=== PATIENT | female | born 1960 | race Caucasian/White ===

== ENCOUNTER → 2022-08-12 07:15 | Outpatient (CLI) | payer OTHER, SELFPAY | PROVIDERS: Visit Provider Physician Assistant Medical | DX: R30.0 Dysuria (principal) | CPT/HCPCS: 87086 ==

== ENCOUNTER → 2022-10-27 11:19 | Outpatient (CLI) | payer OTHER, SELFPAY ==
[2022-10-27 12:52] LABS: Alanine Aminotransferase 107 IU/L (<35); Albumin 4.9 g/dL (3.5-5.0); Albumin Globulin Ratio 1.6 (1.0-2.8); Alkaline Phosphatase 68 U/L (38-126); Aspartate Aminotransferase 58 IU/L (14-36); BUN Creatinine Ratio 22.2 (6-22); Bilirubin Total 0.5 mg/dL (0.2-1.3); Blood Urea Nitrogen 16 mg/dL (7-17); Calcium 9.8 mg/dL (8.4-10.2); Carbon Dioxide 24 mmol/L (22-32); Chloride 99 mmol/L (98-107); Cholesterol 294 mg/dL (140-199); Estimated Glomerular Filt Rate > 60 mL/min (>60); Glucose 102 mg/dL (80-110); HDL Cholesterol 43 mg/dL (40-60); HEMOLYSIS < 15 (0-50); LDL Cholesterol Calculated 174 mg/dL (<100); Potassium 4.1 mmol/L (3.4-5.1); Sodium 136 mmol/L (137-145); Total Protein 7.9 g/dL (6.3-8.2); Triglycerides 385 mg/dL (35-150)
[2022-10-27 13:00] LABS: Hemoglobin A1C% w Est Avg Glu 6.3 % (4.0-6.0)
[2022-10-27 16:40] LABS: Vitamin D 25 Hydroxy (D3) 58.6 ng/mL (30.0-100.0)
== END ==
PROVIDERS: PCP Family Medicine; Referring Provider Family Medicine; Visit Provider Family Medicine
DX: Z00.00 Encounter for general adult medical examination without abnormal findings (principal); E55.9 Vitamin D deficiency, unspecified; M25.511 Pain in right shoulder; Z13.1 Encounter for screening for diabetes mellitus; Z13.220 Encounter for screening for lipoid disorders
CPT/HCPCS: 36415; 80053; 80061; 82306; 83036

== ENCOUNTER → 2023-01-15 08:34 | Outpatient (CLI) | payer OTHER, SELFPAY ==
--- NOTE | 2023-01-15 08:35 | DI.MG.S_ITS ---
BILATERAL DIGITAL SCREENING MAMMOGRAM 3D/2D WITH CAD: 01/15/2023 CLINICAL: Routine screening. Baseline exam. Family history of breast cancer. No prior exams were available for comparison. Both breasts are heterogeneously dense, which may obscure small masses (category c / 51-75% glandular tissue). Current study was also evaluated with a Computer Aided Detection (CAD) system. There are benign calcifications in both breasts. No significant masses, calcifications, or other findings are seen in either breast. IMPRESSION: BENIGN There is no mammographic evidence of malignancy. A 1 year screening mammogram is recommended. Based on the Tyrer Cuzick model (a risk assessment model) the patient's lifetime risk is 10.1% and her 10 year risk is 4.3%. According to the ACR, ACS, and NCCN guidelines, an annual breast MRI exam along with mammogram is recommended if the patient's lifetime risk is 20% or greater. This exam was interpreted at Station ID: [id number]. NOTE: For mammograms, a report in lay terms will be sent to the patient. Approximately 15% of breast malignancies will not be visualized mammographically. In the management of a palpable breast mass, a negative mammogram must not discourage biopsy of a clinically suspicious lesion. Electronically Signed By: Murali marvin/alok:01/15/2023 13:56:40 letter sent: Normal Exam ACR BI-RADS Category 2: Benign Finding(s) 3342F
== END ==
PROVIDERS: PCP Family Medicine; Referring Provider Family Medicine; Visit Provider Family Medicine
DX: Z12.31 Encounter for screening mammogram for malignant neoplasm of breast (principal); Z80.3 Family history of malignant neoplasm of breast
CPT/HCPCS: 77063; 77067

== ENCOUNTER → 2023-03-13 08:08 | Outpatient (CLI) | payer OTHER, SELFPAY ==
[2023-03-13 08:58] LABS: Add Manual Diff / Slide Review NO; Basophils Absolute Auto 100 /uL (0-100); Basophils Percent Auto 0.8 % (0-2); Eosinophils Absolute Auto 200 /uL (0-450); Eosinophils Percent Auto 3.9 % (2-4); Hematocrit 38.8 % (36-46); Hemoglobin 13.5 g/dL (12.0-16.0); Lymphocytes Absolute Auto 2400 /uL (1100-4500); Lymphocytes Percent Auto 38.2 % (25-40); Mean Corpuscular HGB Conc 34.7 % (30-36); Mean Corpuscular Hemoglobin 30.8 PG (26-34); Mean Corpuscular Volume 88.8 fL (80-100); Monocytes Absolute Auto 400 /uL (0-900); Monocytes Percent Auto 6.3 % (3-14); Neutrophils Absolute Auto 3100 /uL (1500-7000); Neutrophils Percent Auto 50.8 % (50-75); Platelet Count 322 X10^3/uL (150-400); Red Blood Cell Count 4.37 X10^6/uL (4.0-5.2); Red Cell Distribution Width 13.5 % (11.6-14.8); White Blood Cell Count 6.2 X10^3/uL (4.5-11.0)
[2023-03-13 09:37] LABS: Alanine Aminotransferase 107 IU/L (<35); Albumin 4.6 g/dL (3.5-5.0); Albumin Globulin Ratio 1.6 (1.0-2.8); Alkaline Phosphatase 65 U/L (38-126); Aspartate Aminotransferase 62 IU/L (14-36); Bilirubin Total 0.7 mg/dL (0.2-1.3); Bilirubin Unconjugated 0.6 mg/dL (0.0-1.1); Globulin 2.8 g/dL (1.7-4.1); HEMOLYSIS < 15 (0-50); Total Protein 7.4 g/dL (6.3-8.2)
[2023-03-13 10:07] LABS: Hepatitis B Surface Antigen NEGATIVE s/c (NEGATIVE)
[2023-03-13 10:19] LABS: Hep C Virus Ab w/Reflex Quant NEGATIVE s/c (NEGATIVE)
[2023-03-14 05:25] LABS: Labcorp Hemoglobin (Hb) A1c 5.8 % (4.8-5.6)
== END ==
PROVIDERS: PCP Family Medicine; Referring Provider Family Medicine; Visit Provider Family Medicine
DX: E78.2 Mixed hyperlipidemia (principal); R73.01 Impaired fasting glucose; R79.89 Other specified abnormal findings of blood chemistry; Z78.9 Other specified health status
CPT/HCPCS: 36415; 80076; 83036; 85025; 86803; 87340

== ENCOUNTER → 2023-04-06 07:48 | Outpatient (CLI) | payer OTHER, SELFPAY ==
--- NOTE | 2023-04-06 07:49 | DI.US.S_ITS ---
PROCEDURE: US ABDOMEN LIMITED INDICATIONS: ABNORMAL LIVER ENZYMES TECHNIQUE: Real-time focused scanning was performed of the abdomen, with image documentation. COMPARISON: None. FINDINGS: Liver length of 18.0 cm. The liver is echogenic. Probable focal fatty sparing adjacent to the gallbladder fossa. No gallstones, gallbladder wall thickening, or sonographic Quintanilla sign. No biliary ductal dilation. Extrahepatic bile duct measures 4 mm. Visualized pancreas is unremarkable sonographically. IMPRESSION: 1. The liver is echogenic, a nonspecific finding commonly seen in the setting of steatosis. 2. No biliary ductal dilation demonstrated. Dictated by: Jamie Key M.D. on 04/06/2023 at 9:08 Approved by: Jamie Key M.D. on 04/06/2023 at 9:34
== END ==
PROVIDERS: PCP Family Medicine; Referring Provider Family Medicine; Visit Provider Family Medicine
DX: R79.89 Other specified abnormal findings of blood chemistry (principal)
CPT/HCPCS: 76705

== ENCOUNTER → 2023-10-07 08:13 | Outpatient (CLI) | payer OTHER, SELFPAY ==
[2023-10-07 10:03] LABS: Hemoglobin A1C% w Est Avg Glu 5.9 % (4.0-6.0)
[2023-10-07 10:22] LABS: Alanine Aminotransferase 69 IU/L (<35); Albumin 4.7 g/dL (3.5-5.0); Albumin Globulin Ratio 1.7 (1.0-2.8); Alkaline Phosphatase 57 U/L (38-126); Aspartate Aminotransferase 45 IU/L (14-36); BUN Creatinine Ratio 17.9 (6-22); Bilirubin Total 0.8 mg/dL (0.2-1.3); Blood Urea Nitrogen 15 mg/dL (7-17); Calcium 10.5 mg/dL (8.4-10.2); Carbon Dioxide 25 mmol/L (22-32); Chloride 99 mmol/L (98-107); Cholesterol 259 mg/dL (140-199); Estimated Glomerular Filt Rate > 60 mL/min (>60); Globulin 2.8 g/dL (1.7-4.1); Glucose 108 mg/dL (80-110); HDL Cholesterol 43 mg/dL (40-60); HEMOLYSIS < 15 (0-50); LDL Cholesterol Calculated 143 mg/dL (<100); Potassium 4.8 mmol/L (3.4-5.1); Sodium 136 mmol/L (137-145); Total Protein 7.5 g/dL (6.3-8.2); Triglycerides 367 mg/dL (35-150)
== END ==
LOC: LAB 08:14
PROVIDERS: PCP Family Medicine; Referring Provider Family Medicine; Visit Provider Family Medicine
DX: E78.2 Mixed hyperlipidemia (principal); R73.01 Impaired fasting glucose; R79.89 Other specified abnormal findings of blood chemistry
CPT/HCPCS: 36415; 80053; 80061; 83036

== ENCOUNTER → 2024-02-25 08:38 | Outpatient (CLI) | payer OTHER, SELFPAY | PROVIDERS: PCP Family Medicine; Visit Provider Nurse Practitioner Family | DX: R35.0 Frequency of micturition (principal) | CPT/HCPCS: 87077; 87086 ==

== ENCOUNTER → 2024-04-21 08:14 | Outpatient (CLI) | payer OTHER, SELFPAY ==
[2024-04-21 09:18] LABS: Hemoglobin A1C% w Est Avg Glu 6.4 % (4.0-6.0)
[2024-04-21 09:20] LABS: Alanine Aminotransferase 104 IU/L (<35); Albumin 4.8 g/dL (3.5-5.0); Alkaline Phosphatase 75 U/L (38-126); Aspartate Aminotransferase 62 IU/L (14-36); BUN Creatinine Ratio 19.4 (6-22); Bilirubin Total 0.6 mg/dL (0.2-1.3); Blood Urea Nitrogen 14 mg/dL (7-17); Calcium 9.8 mg/dL (8.4-10.2); Carbon Dioxide 24 mmol/L (22-32); Chloride 103 mmol/L (98-107); Cholesterol 181 mg/dL (140-199); Estimated Glomerular Filt Rate > 60 mL/min (>60); Globulin 2.4 g/dL (1.7-4.1); Glucose 124 mg/dL (80-110); HDL Cholesterol 44 mg/dL (40-60); HEMOLYSIS < 15 (0-50); LDL Cholesterol Calculated 77 mg/dL (<100); Potassium 4.9 mmol/L (3.4-5.1); Sodium 137 mmol/L (137-145); Total Protein 7.2 g/dL (6.3-8.2); Triglycerides 300 mg/dL (35-150)
[2024-04-21 09:32] LABS: Vitamin D 25 Hydroxy (D3) 63.9 ng/mL (30.0-100.0)
[2024-04-23 09:40] LABS: Ionized Calcium 5.2 mg/dL (4.5-5.6)
[2024-04-23 20:08] LABS: Free Kappa Lt Chains, Serum 16.5 mg/L (3.3-19.4); Free Lambda Lt Chains,Serum 10.6 mg/L (5.7-26.3)
[2024-04-26 07:41] LABS: Parathyroid Hormone Int 37 pg/mL (15-65)
[2024-04-26 14:36] LABS: Albumin 4.3 g/dL (2.9-4.4); Alpha-1-Globulin 0.2 g/dL (0.0-0.4); Alpha-2-Globulin 0.7 g/dL (0.4-1.0); Gamma Globulin 0.9 g/dL (0.4-1.8); Globulin Total 2.8 g/dL (2.2-3.9); Protein, Total 7.1 g/dL (6.0-8.5)
== END ==
PROVIDERS: PCP Family Medicine; Referring Provider Family Medicine; Visit Provider Family Medicine
DX: Z00.00 Encounter for general adult medical examination without abnormal findings (principal); K76.0 Fatty (change of) liver, not elsewhere classified; Z78.9 Other specified health status; R79.89 Other specified abnormal findings of blood chemistry; E78.2 Mixed hyperlipidemia; R73.01 Impaired fasting glucose; E83.52 Hypercalcemia
CPT/HCPCS: 36415; 80053; 80061; 82306; 82330; 83036; 83883; 83970; 84155; 84165

== ENCOUNTER → 2024-05-02 08:43 | Outpatient (CLI) | payer OTHER, SELFPAY ==
--- NOTE | 2024-05-02 08:46 | DI.US.S_ITS ---
PROCEDURE: US THYROID INDICATIONS: NODULE ON [facility] CT TECHNIQUE: Real-time scanning was performed of the thyroid gland, with image documentation. COMPARISON: [facility], CT, CT ANGIO CHEST, 03/24/2024, 14:14. FINDINGS: Thyroid: Right lobe measures 4 x 1.7 x 1.6 cm. Left lobe measures 4 x 2 x 1.8 cm. Isthmus is 0.6 cm thick. Echotexture is homogeneous. Corresponding to the CT finding is a dominant left thyroid nodule measuring 2.2 x 1.7 x 1.7 cm. This is mostly solid (small cystic areas are also noted). Isoechoic echotexture. TR 3. IMPRESSION: TR 3 left thyroid nodule measuring up to 2.2 cm. Follow-up is recommended. ACR TI-RADS definitions and recommendations: TI-RADS 1 (benign): 0 points. FNA not needed. TI-RADS 2 (not suspicious): 2 points. FNA not needed. TI-RADS 3 (mildly suspicious): 3 points. * FNA if 2.5 cm or larger, follow up if 1.5 cm or larger (at 1, 3, and 5 years). TI-RADS 4 (moderately suspicious): 4-6 points. * FNA if 1.5 cm or larger, follow up if 1 cm or larger (at 1, 2, 3, and 5 years). TI-RADS 5 (highly suspicious): 7 points or more. * FNA if 1 cm or larger, follow up if 0.5 cm or larger (every year for 5 years). Dictated by: Ciro Stanford M.D. on 05/02/2024 at 12:14 Approved by: Ciro Stanford M.D. on 05/02/2024 at 12:16
== END ==
LOC: US 08:45
PROVIDERS: PCP Family Medicine; Referring Provider Family Medicine; Visit Provider Family Medicine
DX: E04.1 Nontoxic single thyroid nodule (principal)
CPT/HCPCS: 76536

== ENCOUNTER → 2024-11-02 08:08 | Outpatient (CLI) | payer OTHER, SELFPAY ==
[2024-11-02 09:08] LABS: Hemoglobin A1C% w Est Avg Glu 6.1 % (4.0-6.0)
== END ==
PROVIDERS: PCP Family Medicine; Referring Provider Family Medicine; Visit Provider Family Medicine
DX: R73.01 Impaired fasting glucose (principal)
CPT/HCPCS: 36415; 83036

== ENCOUNTER → 2025-05-03 08:07 | Outpatient (CLI) | payer OTHER, SELFPAY ==
[2025-05-03 08:32] LABS: Hemoglobin A1C% w Est Avg Glu 6.3 % (4.0-6.0)
[2025-05-03 08:36] LABS: Hematocrit 39.3 % (36-46); Hemoglobin 13.4 g/dL (12.0-16.0); Mean Corpuscular HGB Conc 34.0 % (30-36); Mean Corpuscular Hemoglobin 30.9 PG (26-34); Mean Corpuscular Volume 90.9 fL (80-100); Platelet Count 293 X10^3/uL (150-400)
[2025-05-03 08:59] LABS: Alanine Aminotransferase 101 IU/L (<35); Albumin 4.9 g/dL (3.5-5.0); Albumin Globulin Ratio 1.9 (1.0-2.8); Alkaline Phosphatase 70 U/L (38-126); Blood Urea Nitrogen 13 mg/dL (7-17); Calcium 9.8 mg/dL (8.4-10.2); Carbon Dioxide 25 mmol/L (22-32); Chloride 101 mmol/L (98-107); Cholesterol 189 mg/dL (140-199); Estimated Glomerular Filt Rate > 60 mL/min (>60); Globulin 2.6 g/dL (1.7-4.1); Glucose 115 mg/dL (70-99); HDL Cholesterol 42 mg/dL (40-60); HEMOLYSIS < 15 (0-50); Potassium 4.2 mmol/L (3.4-5.1); Sodium 137 mmol/L (137-145); Total Protein 7.5 g/dL (6.3-8.2); Triglycerides 275 mg/dL (35-150)
[2025-05-03 09:17] LABS: TSH w/ Reflex to FT4 0.71 uIU/mL (0.47-4.68)
[2025-05-03 09:40] LABS: HIV 1 & 2 Ab/Ag 4th Gen Combo NEGATIVE (NEGATIVE)
== END ==
PROVIDERS: PCP Family Medicine; Referring Provider Family Medicine; Visit Provider Family Medicine
DX: R73.01 Impaired fasting glucose (principal); E78.2 Mixed hyperlipidemia; K76.0 Fatty (change of) liver, not elsewhere classified; R53.82 Chronic fatigue, unspecified; Z11.4 Encounter for screening for human immunodeficiency virus [HIV]
CPT/HCPCS: 36415; 80053; 80061; 83036; 84443; 85027; 87389

== ENCOUNTER → 2025-05-04 11:47 | Outpatient (CLI) | payer OTHER, SELFPAY ==
--- NOTE | 2025-05-04 11:48 | DI.MG.S_ITS ---
MM screening mammo BI: 05/04/2025. BI-RADS: 2 CLINICAL: 64-year old female for bilateral screening mammogram. Tyrer-Cuzick lifetime risk of 12.1%. Current reported family history of breast cancer: mother. The patient is status-post reduction mammoplasty. The patient had a mastopexy in both breasts. PRIOR EXAMS 01/15/2023. MAMMOGRAPHY TECHNIQUE: 2D and 3D (tomosynthesis) digital mammographic views obtained, with additional images as needed for full coverage. Current study was also evaluated with a Computer Aided Detection (CAD) system. DENSITY B. There are scattered areas of fibroglandular density. MAMMOGRAPHY FINDINGS Bilateral: Benign-appearing calcifications noted. There are no suspicious masses, calcifications, or other findings in the breast. IMPRESSION: * No evidence of malignancy with benign findings. RECOMMENDATIONS Bilateral * Annual screening mammography. OVERALL ASSESSMENT CATEGORY BI-RADS-2: Benign. The [employer] recommends annual screening mammography beginning at age 40 for women with average risk of breast cancer. ELECTRONICALLY SIGNED: Mami Liu M.D. on 05/08/2025 at 09:53:07 PM PT Interpreting Station ID: [id number]
== END ==
LOC: MAMMO 11:48
PROVIDERS: PCP Family Medicine; Referring Provider Family Medicine; Visit Provider Family Medicine
DX: Z12.31 Encounter for screening mammogram for malignant neoplasm of breast (principal); R92.1 Mammographic calcification found on diagnostic imaging of breast; Z80.3 Family history of malignant neoplasm of breast
CPT/HCPCS: 77063; 77067